=== PATIENT | female | born 1985 | race Caucasian/White ===

== ENCOUNTER → 2017-06-14 | Outpatient (CLI) | payer OTHER ==
[2017-06-14 19:16] LABS: H. PYLORI IGG ANTIBODY Negative (Negative); HPYLORI NEG QC Negative (Negative); HPYLORI POS QC POSITIVE (Positive)
== END ==
LOC: LAB.WCP 08:00
PROVIDERS: ATTEND Family Medicine
DX: K21.9 Gastro-esophageal reflux disease without esophagitis (principal)
CPT/HCPCS: 36415; 87339

== ENCOUNTER 2018-10-08 08:43 | Outpatient (CLI) | payer OTHER ==
--- NOTE | 2018-10-10 15:20 | CT Report ---
Reason: CHRONIC SINUSITIS Procedure Date: 10/08/2018 Accession Number: [id number] / [id number] Procedure: CT - Sinuses CPT Code: FULL RESULT: EXAM: CT SINUS. EXAM DATE: 10/08/2018 08:56 AM. HISTORY: Chronic sinusitis. COMPARISONS: None. TECHNIQUE: Routine multi-axial CT imaging performed through the sinuses. Iodinated IV contrast: None. Reconstructions: Multiplanar reformats. In accordance with CT protocol optimization, one or more of the following dose reduction techniques were utilized for this exam: automated exposure control, adjustment of mA and/or KV based on patient size, or use of iterative reconstructive technique. FINDINGS: Mild to moderate right maxillary sinus mucosal thickening with dependent retained secretions with intermixed small gas bubbles. The right maxillary sinus infundibulum appears stenotic or obstructed. Minimal mucosal thickening in the left maxillary sinus without air-fluid level or evidence of obstruction, the left ostiomeatal unit appears patent. Absent right frontal sinus. Hypoplastic left frontal sinus. No evidence for significant frontoethmoid mucosal thickening or opacification. Negligible sphenoid mucosal thickening. Clear mastoids as far as visualized. Intact midline nasal septum. No obstructive nasal passage mass. Symmetric unremarkable appearance of the orbits. No acute fracture or focal bone destruction. IMPRESSION: 1. Mild to moderate right maxillary sinus mucosal thickening with dependent retained secretions and stenosis or obstruction of the infundibulum. A component of acute right maxillary sinusitis may be present. 2. Minimal left maxillary sinus mucosal thickening without evidence for air-fluid level or obstruction. 3. No other evidence for acute sinus or mastoid disease. [facility]
== END 2018-10-08 08:44 | disposition home or self-care (01) ==
LOC: DI 08:43
PROVIDERS: ATTEND Physician Assistant
DX: J32.9 Chronic sinusitis, unspecified (principal); J34.89 Other specified disorders of nose and nasal sinuses
CPT/HCPCS: 70486

== ENCOUNTER 2018-10-21 09:19 | Outpatient (CLI) | payer OTHER ==
[2018-10-21 09:38] LABS: BASOPHILS # (AUTO) 0.1 10^3/uL (0.0-0.1); BASOPHILS % (AUTO) 0.9 %; EOSINOPHILS # (AUTO) 0.2 10^3/uL (0.0-0.7); EOSINOPHILS % (AUTO) 3.1 %; HGB - HEMOGLOBIN 12.2 g/dL (12.0-16.0); LYMPHOCYTES # (AUTO) 1.6 10^3/uL (1.5-3.5); MEAN CORPUSCULAR HEMOGLOBIN 27.4 pg (27.0-31.0); MEAN PLATELET VOLUME 9.4 fL (7.9-10.8); MONOCYTES # (AUTO) 0.3 10^3/uL (0.0-1.0); MONOCYTES % (AUTO) 4.9 %; NEUTROPHILS # (AUTO) 4.1 10^3/uL (1.5-6.6); NEUTROPHILS % (AUTO) 65.1 %; PLT - PLATELET COUNT 218 10^3/uL (130-450); RED BLOOD COUNT 4.45 10^6/uL (4.20-5.40); WHITE BLOOD COUNT 6.3 x10^3/uL (4.8-10.8)
[2018-10-21 09:58] LABS: ALBUMIN 3.7 g/dL (3.2-5.5); ALBUMIN/GLOBULIN RATIO 1.2 (1.0-2.2); BILIRUBIN,TOTAL 0.9 mg/dL (0.2-1.0); CALCIUM 9.1 mg/dL (8.5-10.3); CREATININE 0.7 mg/dL (0.4-1.0); TOTAL PROTEIN 6.9 g/dL (6.7-8.2)
== END 2018-10-21 09:20 | disposition home or self-care (01) ==
LOC: LAB 09:19
PROVIDERS: ATTEND Ophthalmology
DX: Z01.812 Encounter for preprocedural laboratory examination (principal); Z01.810 Encounter for preprocedural cardiovascular examination
CPT/HCPCS: 36415; 80053; 85025; 93005

== ENCOUNTER 2019-06-20 08:00 | Outpatient (CLI) | payer OTHER ==
[2019-06-20 13:04] LABS: CHOL/HDL RATIO 3.8 (<4.4); CHOLESTEROL 207 mg/dL; HDL CHOLESTEROL 55 mg/dL; LDL CHOLESTEROL,CALCULATED 133 mg/dL; LDL/HDL RATIO 2.4 (<4.4); VLDL CHOLESTEROL 19 mg/dL
== END 2019-06-20 23:59 | disposition home or self-care (01) ==
LOC: LAB.WCP 08:00
PROVIDERS: ATTEND Family Medicine
DX: Z00.00 Encounter for general adult medical examination without abnormal findings (principal)
CPT/HCPCS: 36415; 80061; 83721

== ENCOUNTER 2020-02-07 07:23 | Outpatient (CLI) | payer OTHER | END 2020-02-07 07:24 | disposition home or self-care (01) | LOC: LAB 07:23 | PROVIDERS: ATTEND Family Medicine | DX: Z11.59 Encounter for screening for other viral diseases (principal) ==